=== PATIENT | male | born 1940 | race Caucasian/White ===

== ENCOUNTER 2025-04-16 13:56 | Emergency (ER) | payer MEDICAID, MEDICARE, OTHER ==
[2025-04-16] MEDS: Tetracaine HCl/PF 0.5% 4 ML Bottle EYEBOTH ONE (14:30)
== END 2025-04-16 15:00 | disposition home or self-care (01) ==
LOC: LL.ED 13:56
DX: S05.92XA Unspecified injury of left eye and orbit, initial encounter (principal); S05.91XA Unspecified injury of right eye and orbit, initial encounter; Z88.8 Allergy status to other drugs, medicaments and biological substances
CPT/HCPCS: 99283; J3490